=== PATIENT | female | born 1940 | race Caucasian/White ===

== ENCOUNTER → 2016-05-31 | Outpatient (CLI) | payer MEDICARE ==
[~2016-05-31] VITALS: Ht 167.6 cm; Wt 77.1 kg
[~2016-05-31] MED LIST: ASP325TEC PO; CALC-712 PO; LEVOTHYROXINE PO; LOVASTATIN PO; OMEG-12 PO
--- NOTE | 2016-05-31 10:51 | Progress Note-Pre Operative ---
Pre-Operative Progress Note H&P Reviewed The H&P was reviewed, patient examined and no changes noted. Date H&P Reviewed: May 31, 2016 Time H&P Reviewed: 10:45 Pre-Operative Diagnosis: Dominant Left Thyroid Nodule ALEJANDRO RAPHAEL MD May 31, 2016 10:51 am
--- NOTE | 2016-05-31 10:52 | Progress Note-Post Operative ---
Post-Operative Progess Note Surgeon (s)/[employer] (s) Surgeon ALEJANDRO RAPHAEL MD [employer]: n/a Pre-Operative Diagnosis Dominant Left Thyroid Nodule Post-Operative Diagnosis same Post-Op Procedure Note Date of Procedure: May 31, 2016 Name of Procedure Performed: Ultrasound Guided FNA of Left Thyroid Nodule Description of the Procedure: n/a Findings of the Procedure n/a Anesthesia Type local Estimated blood loss (mL): minimal Specimen(s) collected/removed slides and cytology to pathology ALEJANDRO RAPHAEL MD May 31, 2016 10:52 am
--- NOTE | 2016-05-31 12:59 | Diagnostic Imaging Report ---
EXAMINATION: Dedicated thyroid ultrasound performed with ultrasound guidance provided for FNA performed by Dr. Galdamez. Indication: Thyroid nodule FINDINGS: Ultrasound images demonstrate a inferior left thyroid nodule. IMPRESSION: Ultrasound guidance provided for inferior left thyroid nodule FNA. Dictated by: Dictated on workstation # [id number]
--- NOTE | 2016-05-31 16:45 | Diagnostic Imaging Report ---
PROCEDURE: US Thyroid. TECHNIQUE: Multiple real-time grayscale images were obtained of the thyroid in various projections. INDICATION: Thyroid nodule. FINDINGS: The thyroid gland is enlarged and is very heterogenous. There is a 2.3 x 2.2 x 2.4 cm heterogeneous hypoechoic nodule seen with no significant increased vascularity with color Doppler noted in the lower aspect of the left thyroid lobe. This is similar to 11/01/2015. The rest of the thyroid parenchyma demonstrates increased vascularity and heterogeneity. IMPRESSION: Heterogeneous hypervascular thyroid gland may relate to multinodular goiter or thyroiditis. Underlying 2.4 cm indeterminate nodule in the lower aspect of the left thyroid lobe is without significant change from October 2015. Dictated by: Dictated on workstation # [id number]
== END ==
LOC: RAD 10:45
PROVIDERS: ATTEND Otolaryngology Otolaryngology/Facial Plastic Surgery
DX: E04.1 Nontoxic single thyroid nodule (principal)
CPT/HCPCS: 76536; 76942; 88305

== ENCOUNTER → 2017-03-07 | Outpatient (CLI) | payer MEDICARE ==
--- NOTE | 2017-03-07 12:20 | Diagnostic Imaging Report ---
PROCEDURE: US Thyroid. TECHNIQUE: Multiple real-time grayscale images were obtained of the thyroid in various projections. INDICATION: Thyroid nodule. FINDINGS: The previous thyroid ultrasound exam performed on 05/31/2016 noted a 2.4 cm indeterminate nodule in the inferior pole of the left lobe of the thyroid. This finding seems similar to the prior thyroid ultrasound exam of 11/01/2015. The nodule in question was subsequently biopsied using ultrasound guidance on 05/31/2016. The results of the biopsy are not known to me. On this exam, the nodule in the inferior pole of the left lobe of the thyroid seen previously is again evident and does not appear to have changed significantly. The nodule measures 2.2 x 2.4 x 2.3 cm. The overall appearance of the thyroid gland itself is also no different. Each lobe has a heterogeneous appearance and there is generalized enlargement of the thyroid gland. The right lobe measures 5.8 x 3.4 x 1.7 cm while the left lobe is estimated to be 6.1 x 3 x 2.2 cm (normal gland size 4-5 x 2 x 2 cm or less). IMPRESSION: The thyroid gland is enlarged and the appearance of the gland does suggest a multinodular goiter. The nodule in the inferior pole of the left lobe seen on the prior study appears stable. Correlation with the patient's biopsy results will be recommended. Dictated by: Dictated on workstation # [id number]
== END ==
LOC: RAD 10:57
PROVIDERS: ATTEND Otolaryngology Otolaryngology/Facial Plastic Surgery
DX: E04.1 Nontoxic single thyroid nodule (principal)
CPT/HCPCS: 76536

== ENCOUNTER → 2018-05-12 | Outpatient (CLI) | payer MEDICARE ==
--- NOTE | 2018-05-12 12:50 | Diagnostic Imaging Report ---
PROCEDURE: US Thyroid. TECHNIQUE: Multiple real-time grayscale images were obtained of the thyroid in various projections. INDICATION: Left thyroid nodule. Correlation is made with prior exam from 03/07/2017. Right lobe of the thyroid measures 5.8 x 2.8 x 1.6 cm and the left lobe measures 6.6 x 3.4 x 2.3 cm. Isthmus is 7 mm in thickness. Marked proximal heterogeneity is again noted bilaterally. The solid-appearing nodule lower pole left lobe measure approximately 3.0 x 1.6 x 2.6 cm. This compares with approximately 2.4 x 2.3 x 2.2 cm. Nodule is measuring slightly larger however this could in part be owing to slight differences in measurement technique. No additional mass is identified. IMPRESSION: Thyromegaly with parenchymal heterogeneity. Left lower lobe solid nodule is similar to perhaps minimally larger when compared with examination from 03/07/2017. Dictated by: Dictated on workstation # [id number]
== END ==
LOC: RAD 11:24
PROVIDERS: ATTEND Otolaryngology Otolaryngology/Facial Plastic Surgery
DX: E04.1 Nontoxic single thyroid nodule (principal)
CPT/HCPCS: 76536

== ENCOUNTER → 2019-06-25 | Outpatient (CLI) | payer MEDICARE ==
--- NOTE | 2019-06-25 12:52 | Diagnostic Imaging Report ---
PROCEDURE: US Thyroid. TECHNIQUE: Multiple real-time grayscale images were obtained of the thyroid in various projections. INDICATION: Thyroid nodules, followup. Correlation is made with prior thyroid ultrasound from 05/12/2018. Both lobes remain enlarged with right lobe measuring 6.0 x 1.6 x 2.6 cm and the left lobe measuring 5.7 x 2.2 x 2.7 cm. Isthmus is thickened at 11 mm. Previously noted hypoechoic nodule in the lower pole left lobe measures 2.9 x 1.9 x 1.8 cm, compare with 3.0 x 1.6 x 2.6 cm on prior. Marked parenchymal heterogeneity is again noted. IMPRESSION: Stable thyroid ultrasound when compared to examination one year earlier. Dictated by: Dictated on workstation # [id number]
== END ==
LOC: RAD 12:09
PROVIDERS: ATTEND Otolaryngology Otolaryngology/Facial Plastic Surgery
DX: E04.1 Nontoxic single thyroid nodule (principal)
CPT/HCPCS: 76536

== ENCOUNTER → 2020-07-11 | Outpatient (CLI) | payer MEDICARE ==
--- NOTE | 2020-07-11 18:12 | Diagnostic Imaging Report ---
PROCEDURE: US Thyroid. TECHNIQUE: Multiple real-time grayscale images were obtained of the thyroid in various projections. INDICATION: Left thyroid nodule. COMPARISON is made with a previous examination from June 25, 2019. FINDINGS: The thyroid is enlarged. The left lobe of the thyroid measures 6.0 x 3.1 x 2.3 cm. The right lobe measures 6.0 x 2.9 x 2.1 cm. Thyroid again appears markedly heterogeneous with multiple scattered small nodules throughout the thyroid with increased thyroid vascularity. A dominant nodule within the inferior left thyroid lobe measures 2.3 x 1.6 x 2.0 cm which is not significantly changed. IMPRESSION: 1. Heterogeneous thyroid with thyromegaly and increased vascularity. The overall appearance is similar to the prior examination. There has not been evidence of significant interval change in a dominant cystic and solid nodule within the lower pole of the left thyroid. Dictated by: Dictated on workstation # [id number]
== END ==
LOC: RAD 10:16
PROVIDERS: ATTEND Otolaryngology Otolaryngology/Facial Plastic Surgery
DX: E04.1 Nontoxic single thyroid nodule (principal)
CPT/HCPCS: 76536

== ENCOUNTER → 2021-04-17 | Outpatient (CLI) | payer MEDICARE ==
--- NOTE | 2021-04-17 10:53 | Diagnostic Imaging Report ---
INDICATION: Right knee pain. There is osteoporosis present. There is tricompartmental arthritis. There are vascular calcifications, chronic. No fracture or dislocation. No opaque loose body. IMPRESSION: Severe tricompartmental arthritis, bony demineralization and atherosclerotic vascular disease. Dictated by: Dictated on workstation # [id number]
== END ==
LOC: RAD FS 09:02
PROVIDERS: ATTEND Nurse Practitioner
DX: M17.11 Unilateral primary osteoarthritis, right knee (principal); M81.0 Age-related osteoporosis without current pathological fracture; I70.90 Unspecified atherosclerosis
CPT/HCPCS: 73562

== ENCOUNTER → 2021-07-12 | Outpatient (CLI) | payer MEDICARE ==
--- NOTE | 2021-07-12 11:26 | Diagnostic Imaging Report ---
INDICATION: Thyroid nodule TECHNIQUE: Grayscale sonographic images of the thyroid gland. CORRELATION STUDY: 07/11/2020, 03/03/2010 FINDINGS: RIGHT LOBE: Enlarged 6.1 x 2.3 x 1.8 cm. LEFT LOBE: Enlarged 6.5 x 2.6 x 2.2 cm. There is a markedly heterogeneous nodular echotexture demonstrated throughout both lobes of thyroid gland as well as isthmus. This significantly limits assessment of the thyroid gland. There is a perhaps slightly more discrete nodule at the inferior pole left thyroid lobe, 1.8 x 1.5 x 1.7 cm (previously 2.3 x 1.6 x 2.0 cm). IMPRESSION: Enlarged thyroid gland with extremely nodular heterogeneous echotexture throughout both lobes. Generally stable appearance of a slightly more dominant mass at the left inferior thyroid lobe. (Normal gland size: 4-5 x 2 x 2 cm) Dictated by: Dictated on workstation # [id number]
== END ==
LOC: RAD 11:00
PROVIDERS: ATTEND Otolaryngology Otolaryngology/Facial Plastic Surgery
DX: E04.2 Nontoxic multinodular goiter (principal)
CPT/HCPCS: 76536

== ENCOUNTER → 2022-07-11 | Outpatient (CLI) | payer MEDICARE ==
--- NOTE | 2022-07-11 16:45 | Diagnostic Imaging Report ---
PROCEDURE: US Thyroid. TECHNIQUE: Multiple real-time grayscale images were obtained of the thyroid in various projections. INDICATION: Thyroid nodule. COMPARISON: 07/12/2021 and previous. FINDINGS: Right thyroid lobe measures 6.0 x 2.3 x 1.5 cm. Echogenicity is heterogeneous. Vascularity is increased. No discrete nodule is identified. The left lobe measures 6.1 x 2.2 x 2.2 cm in size. Vascularity is mildly increased. Echogenicity is heterogeneous. An ill-defined nodule is measured at 2.8 x 1.6 x 1.9 cm in size. This is increased since 07/12/2021, but appears similar to 06/25/2019 and 05/12/2018. Measurement is challenging due to the very heterogeneous appearance of the thyroid. This nodule appears to have been biopsied in May 2016. The isthmus measures 0.9 cm. No definite nodule is seen. IMPRESSION: 1. Dominant left thyroid nodule measures increased in size since the prior study, but similar to 2019. Measurements appear challenging and variable due to the very heterogeneous appearance of the thyroid. 2. Heterogeneous hypervascular thyroid, can be seen with thyroiditis. Dictated by: Dictated on workstation # [id number]
== END ==
LOC: RAD 12:39
PROVIDERS: ATTEND Otolaryngology Otolaryngology/Facial Plastic Surgery
DX: E04.1 Nontoxic single thyroid nodule (principal); E07.89 Other specified disorders of thyroid
CPT/HCPCS: 76536

== ENCOUNTER 2022-09-08 23:30 | Emergency (ER) | payer MEDICARE ==
--- NOTE | 2022-09-08 23:38 | ED Integumentary General ---
General Stated Complaint: RASH History of Present Illness Date Seen by Provider: Sep 08, 2022 Time Seen by Provider: 23:36 Initial Comments 81-year-old female presents with some swelling warmth under her left chin. She reports started yesterday and is gotten more swollen and painful. She is not sure if some better or what exactly is going on. She denies any fevers or chills. Allergies and Home Medications Allergies Coded Allergies: No Known Drug Allergies (Unverified , 01/26/11) Patient Home Medication List Home Medication List Reviewed: Yes Aspirin (Aspirin Ec 325 Mg) 325 Mg Tabec, 325 MG PO DAILY, (Reported) Entered as Reported by: RESHMA BELLA on 01/25/111451 Calc/D3/Mag/Zn/Account Services Associate/Rocco/[place] (Calcium 600 Mg Plus Vit D Tab) 1 Each Tablet, 1 EACH PO TID, (Reported) Entered as Reported by: RESHMA BELLA on 01/25/111451 [place]-3/Dha/Epa/Fish Oil (Fish Oil 1,000 Mg Ec Softgel) 1 Each Capsule.dr, 2 EACH PO DAILY, (Reported) Entered as Reported by: RESHMA BELLA on 01/25/111451 [Levothyroxine] , PO DAILY, (Reported) Entered as Reported by: RESHMA BELLA on 01/25/111451 [Lovastatin] , PO HS, (Reported) Entered as Reported by: RESHMA BELLA on 01/25/111451 Review of Systems Review of Systems Constitutional: see HPI EENTM: see HPI Respiratory: no symptoms reported Cardiovascular: no symptoms reported Gastrointestinal: no symptoms reported Genitourinary: no symptoms reported Musculoskeletal: no symptoms reported Skin: see HPI Physical Exam Vital Signs Vital Signs - First Documented 09/08/22 23:36 Temp 36.8 Pulse 64 Resp 18 B/P (MAP) 187/71 (109) Pulse Ox 96 O2 Delivery Room Air Capillary Refill : General Appearance: WD/WN, no apparent distress HEENT: normal ENT inspection; No pharyngeal erythema Cardiovascular: normal peripheral pulses, regular rate, rhythm Respiratory: lungs clear, normal breath sounds Gastrointestinal: non tender, soft Extremities: normal range of motion, non-tender Skin Problem Location: face Skin Problem Character: other (Erythema and swelling under the left chin) Progress/Results/Core Measures Results/Orders My Orders Orders - J CARLOS KING DO Clindamycin Capsule (Cleocin Capsule) (09/09/22 00:00) Diphenhydramine Tablet (Benadryl Tablet) (09/09/22 00:00) Vital Signs/I&O 09/08/22 23:36 Temp 36.8 Pulse 64 Resp 18 B/P (MAP) 187/71 (109) Pulse Ox 96 O2 Delivery Room Air Progress Progress Note : Progress Note Patient with some erythema, swelling and tenderness in her left chin. It is mildly firm. It is difficult to discern if it is an allergic/localized reaction is from a bite versus salivary gland issue versus cellulitis with early abscess formation. She does have very poor teeth but no swelling under the tongue or tenderness under the tongue. Patient to be treated with Benadryl, clindamycin and recommended sour lozenges such as lemon drops. She should follow with her primary care provider in 2 days for recheck. Departure Impression Primary Impression: Cellulitis of head [any part, except face] Disposition: HOME, SELF-CARE Condition: Stable Departure-Patient Inst. Referrals: CLARITZA CHAVEZ MD (PCP/Family) Primary Care Physician Patient Instructions: Cellulitis (Skin Infection), Adult ED, Salivary Gland Infection (DC), Salivary Gland Stones Add. Discharge Instructions: 25 to 50 mg Benadryl every 8 hours. You may use Tylenol ibuprofen as needed for pain. Please suck on sour lozenges such as lemon drops. Follow-up with Dr. Chavez Saturday or Saturday for recheck. Scripts Clindamycin HCl (Clindamycin HCl) 300 Mg Capsule 300 MG PO Q8H for 10 Days, #30 CAP Prov: J CARLOS KING DO 09/08/22 J CARLOS KING DO Sep 08, 2022 23:38
[2022-09-08 23:57] VITALS: BP 187/71
[2022-09-08] MEDS ORDERED: CLIN-144 PO (23:57)
[2022-09-09] MEDS ORDERED: CLINDAMYCIN 150 MG (CLEOCIN) CAP PO ONE
[2022-09-09] MEDS ORDERED: diphenhydrAMINE 25 MG TAB (BENADRYL) PO ONE
== END 2022-09-08 23:58 | disposition home or self-care (01) ==
LOC: EDUNIT# 23:30 → ER FS 23:32
DX: L03.811 Cellulitis of head [any part, except face] (principal); Z28.310 Unvaccinated for COVID-19
CPT/HCPCS: 99283